=== PATIENT | female | born 1990 | race Two or more races ===

== ENCOUNTER 2018-01-19 19:36 | Emergency (ER) | payer OTHER ==
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
[2018-01-19 19:47] VITALS: BP 114/68; PULSE 78; TEMP 98.3; BMI 22.4
[2018-01-19 20:29] LABS: URINE APPEARANCE SLCLOUDY; URINE BILIRUBIN NEGATIVE (<2.0 mg/dL); URINE COLOR YELLOW; URINE GLUCOSE (UA) NEGATIVE (NEGATIVE); URINE KETONE TRACE (NEGATIVE); URINE LEUK ESTERASE 1+ (NEGATIVE); URINE NITRITE NEGATIVE (NEGATIVE); URINE PROTEIN NEGATIVE (NEGATIVE); URINE UROBILINOGEN 4.0 E.U/dl mg/dL (0.2-1.0)
[2018-01-19 20:32] LABS: EPI CELLS RARE /HPF (FEW); URINE MUCUS RARE
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
== END 2018-01-19 22:18 | disposition home or self-care (01) ==
LOC: JER 19:36 → JERFT 19:36
DX: M54.2 Cervicalgia (principal); V43.52XA Car driver injured in collision with other type car in traffic accident, initial encounter; Y92.414 Local residential or business street as the place of occurrence of the external cause; Y93.89 Activity, other specified; Y99.8 Other external cause status
CPT/HCPCS: 71046-TC-FY; 72050-TC-FY; 81003; 81015; 84703; 99281-25

== ENCOUNTER 2020-10-23 20:00 | Emergency (ER) | payer OTHER ==
[2020-10-23 20:11] VITALS: BP 108/75; PULSE 79; TEMP 98.6; BMI 22.6
[2020-10-23] MEDS ORDERED: DEXAMETHASONE LIQUID 0.5 MG/5 ML PO ONE (20:16)
[2020-10-23] MEDS ORDERED: ALBUTEROL SO4 2.5/IPRATROPIUM 0.5 INH SOL 3 ML VIAL.NEB. NEB ONE (20:22)
[2020-10-23] MEDS ORDERED: DEXAMETHASONE SOD PHOSPHATE 10 MG/1 ML VIAL ONE (20:23)
[2020-10-23] MEDS: ALBUTEROL SO4 2.5/IPRATROPIUM 0.5 INH SOL 3 ML VIAL.NEB. NEB SCH ×4 (20:49→21:35)
== END 2020-10-23 21:47 | disposition home or self-care (01) ==
LOC: JER 20:00
PROC: 3E0F7GC Introduction of Other Therapeutic Substance into Respiratory Tract, Via Natural or Artificial Opening (ICD-10-PCS; principal; 2020-10-23)
DX: J45.21 Mild intermittent asthma with (acute) exacerbation (principal)
CPT/HCPCS: 71046-TC-FY; 87804; 99285-25; C9803; U0003